=== PATIENT | female | born 1985 | race Asian ===

== ENCOUNTER 2022-11-22 13:59 | Inpatient (IN) | payer OTHER ==
[~2022-11-22] VITALS: Ht 157.5 cm; Wt 55.3 kg
[2022-11-22 16:29] LABS: BASOPHILS % (AUTO) 0.7 % (0.0-2.0); EOSINOPHILS % (AUTO) 5.1 % (1.0-6.0); HEMATOCRIT 32.3 % (36-46); HEMOGLOBIN 10.2 g/dL (12.0-16.0); LYMPHOCYTES # (AUTO) 1.7 K/uL (1.0-4.8); LYMPHOCYTES % (AUTO) 30.9 % (22.0-44.0); MEAN CORPUSCULAR HGB CONC 31.6 G/dL (31.0-37.0); MEAN CORPUSCULAR VOLUME 79 fL (80-100); MONOCYTES # (AUTO) 0.4 K/uL (0.1-1.0); MONOCYTES % (AUTO) 7.1 % (2.0-9.0); NEUTROPHILS # (AUTO) 3.2 K/uL (1.8-7.7); NEUTROPHILS % (AUTO) 56.2 % (40.0-70.0); PLATELET COUNT (AUTO) 436 K/uL (150-450); RED BLOOD CELL COUNT(AUTO) 4.08 MIL/uL (4.00-5.20); RED CELL DISTRIBUTION WIDTH 21.8 % (11.5-14.5)
[2022-11-22 16:46] LABS: ANION GAP 8 mmol/L (8-16); CALCIUM, TOTAL 8.9 mg/dL (8.8-10.5); CARBON DIOXIDE 26 mmol/L (22-29); CHLORIDE 104 mmol/L (98-107); GLOMERULAR FILTR. RATE CALC > 60 mL/min (>60); GLUCOSE,RANDOM 89 mg/dL (70-110); POTASSIUM 3.6 mmol/L (3.5-5.1); SODIUM SERUM 138 mmol/L (136-145); UREA NITROGEN, BLOOD 11 mg/dL (7-18)
[2022-11-22 16:46] LABS: COVID AG,FIA SOURCE NASOPHARYNGEAL
[2022-11-22 16:52] LABS: ACETAMINOPHEN < 2 mcg/mL (10-30); ALANINE AMINOTRANSFERASE 21 U/L (12-78); ALKALINE PHOSPHATASE 56 U/L (46-116); ASPARTATE AMINOTRANSFERASE 22 U/L (15-37); BILIRUBIN,TOTAL 0.5 mg/dL (0.1-1.0); TOTAL PROTEIN, SERUM 8.4 g/dL (6.4-8.2)
[2022-11-22 17:32] LABS: SALICYLATE 0.5 mg/dL (2.8-20.0)
[2022-11-22] MEDS: MELATONIN 5 MG TABLET PO SCH (21:00)
[2022-11-22] MEDS ORDERED: THIAMINE 100 MG TABLET PO SCH (21:00)
[2022-11-22] MEDS ORDERED: GuaiFENesin/D-METHORPHAN [SUGAR-FREE] 200-20MG/10 ML SYRUP UDCUP PO PRN (21:00)
[2022-11-22] MEDS ORDERED: MAGNESIUM HYDROXIDE SUSPENSION 30 ML UDCUP PO PRN (21:00)
[2022-11-22] MEDS ORDERED: LORazepam 2 MG TABLET PO PRN (21:00)
[2022-11-22] MEDS ORDERED: HydrOXYzine PAMOATE 50 MG CAPSULE PO PRN (21:00)
[2022-11-22] MEDS ORDERED: ZOLPIDEM TARTRATE 10 MG TABLET PO PRN (21:00)
[2022-11-22] MEDS ORDERED: TUBERCULIN, PURIFIED PROTEIN DERIVATIVE 5 TU/0.1 ML SYRINGE ID ONE (21:00)
[2022-11-22] MEDS ORDERED: LOPERAMIDE HCL 2 MG CAPSULE PO PRN (21:00)
[2022-11-22] MEDS ORDERED: LURASIDONE HCL 20 MG TABLET PO PRN (21:00)
[2022-11-22] MEDS ORDERED: MAG HYDROX/AL HYDROX/SIMETH ES 30 ML SUSPENSION UDCUP PO PRN (21:00)
[2022-11-22] MEDS ORDERED: PROMETHAZINE HCL 25 MG TABLET PO PRN (21:00)
[2022-11-22] MEDS ORDERED: ACETAMINOPHEN 325 MG TABLET PO PRN (21:00)
[2022-11-22 23:23] LABS: HCG,QUANTITATIVE < 1 mIU/mL (0-6)
[2022-11-23 00:30] VITALS: BP 121/66
[2022-11-23 07:24] LABS: FREE T4 (FREE THYROXINE) 1.26 ng/dL (0.76-1.46); THYROID STIMULATING HORMONE 1.39 uIU/mL (0.36-3.74)
[2022-11-23] MEDS ORDERED: IBUPROFEN 600 MG TABLET PO PRN (08:15)
[2022-11-23 08:37] VITALS: BP 106/63
[2022-11-23] MEDS: MULTIVITAMINS WITH MINERALS, THERAPEUTIC TABLET PO SCH (09:00)
[2022-11-23] MEDS ORDERED: FOLIC ACID 1 MG TABLET PO SCH (09:00)
[2022-11-23] MEDS: THIAMINE 100 MG TABLET PO SCH ×2 (09:00→17:00)
[2022-11-23] MEDS ORDERED: FLUoxetine HCL 20 MG CAPSULE PO SCH (09:00)
[2022-11-23] MEDS: OMEGA-3/DHA/EPA/FISH OIL 1,000 MG CAPSULE PO SCH (09:00)
[2022-11-23 10:59] VITALS: BP 112/70
[2022-11-23] MEDS: ACETAMINOPHEN 325 MG TABLET PO PRN ×2 (11:01→17:20)
[2022-11-23 17:09] VITALS: BP 105/68
[2022-11-23] MEDS ORDERED: LURASIDONE HCL 40 MG TABLET PO SCH (17:30)
[2022-11-23] MEDS: MELATONIN 5 MG TABLET PO SCH (20:44)
[2022-11-23] MEDS ORDERED: LOPERAMIDE HCL 2 MG CAPSULE PO PRN (21:15)
[2022-11-23] MEDS ORDERED: TUBERCULIN, PURIFIED PROTEIN DERIVATIVE 5 TU/0.1 ML SYRINGE ID ONE (21:15)
[2022-11-23] MEDS ORDERED: HydrOXYzine PAMOATE 50 MG CAPSULE PO PRN (21:15)
[2022-11-23] MEDS ORDERED: GuaiFENesin/D-METHORPHAN [SUGAR-FREE] 200-20MG/10 ML SYRUP UDCUP PO PRN (21:15)
[2022-11-23] MEDS ORDERED: MAGNESIUM HYDROXIDE SUSPENSION 30 ML UDCUP PO PRN (21:15)
[2022-11-23] MEDS ORDERED: ACETAMINOPHEN 325 MG TABLET PO PRN (21:15)
[2022-11-23] MEDS ORDERED: MAG HYDROX/AL HYDROX/SIMETH ES 30 ML SUSPENSION UDCUP PO PRN (21:15)
[2022-11-23] MEDS ORDERED: PROMETHAZINE HCL 25 MG TABLET PO PRN (21:15)
[2022-11-24 07:59] LABS: HEMOGLOBIN A1C 4.4 % (3.8-5.6)
[2022-11-24 08:12] LABS: CHOL/HDL RATIO 3.6 (3.9-5.7); FREE T4 (FREE THYROXINE) 1.09 ng/dL (0.76-1.46); THYROID STIMULATING HORMONE 0.41 uIU/mL (0.36-3.74)
[2022-11-24] MEDS ORDERED: MULTIVITAMINS WITH MINERALS, THERAPEUTIC TABLET PO SCH (09:00)
[2022-11-24] MEDS ORDERED: THIAMINE 100 MG TABLET PO SCH (09:00)
[2022-11-24] MEDS: FOLIC ACID 1 MG TABLET PO SCH ×2 (09:00→09:15)
[2022-11-24] MEDS: DULoxetine HCL 30 MG CAPSULE PO SCH ×2 (09:00→09:15)
[2022-11-24] MEDS: MULTIVITAMINS WITH MINERALS, THERAPEUTIC TABLET PO SCH ×2 (09:00→09:15)
[2022-11-24] MEDS: THIAMINE 100 MG TABLET PO SCH ×3 (09:00→17:00)
[2022-11-24] MEDS: PREGABALIN 25 MG CAPSULE PO SCH ×4 (09:00→17:00)
[2022-11-24] MEDS: OMEGA-3/DHA/EPA/FISH OIL 1,000 MG CAPSULE PO SCH ×2 (09:00→09:15)
[2022-11-24] MEDS ORDERED: OMEGA-3/DHA/EPA/FISH OIL 1,000 MG CAPSULE PO SCH (09:00)
[2022-11-24 09:04] VITALS: BP 101/56
[2022-11-24] MEDS ORDERED: PREG25 PO (13:11)
[2022-11-24] MEDS ORDERED: MELA5TAB40 PO (13:11)
[2022-11-24] MEDS ORDERED: DULO-114 PO (13:11)
[2022-11-24] MEDS ORDERED: TRAZ-252 PO (13:11)
[2022-11-24] MEDS ORDERED: OMEG-135 PO (13:11)
[2022-11-24 13:16] VITALS: BP 121/60
[2022-11-24] MEDS ORDERED: TraZODone HCL 50 MG TABLET PO SCH (21:00)
[2022-11-24] MEDS ORDERED: MELATONIN 5 MG TABLET PO SCH (21:00)
== END 2022-11-24 17:15 | disposition home or self-care (01) | DRG 885 ==
LOC: EMS 14:13 → 3EI 23:00
PROVIDERS: ADMIT Psychiatry & Neurology Psychiatry; ATTEND Psychiatry & Neurology Psychiatry
DX: F33.2 Major depressive disorder, recurrent severe without psychotic features (principal); R45.851 Suicidal ideations; Z20.822 Contact with and (suspected) exposure to COVID-19; Z90.710 Acquired absence of both cervix and uterus; Z63.9 Problem related to primary support group, unspecified; D64.9 Anemia, unspecified
CPT/HCPCS: 80053; 80061; 83036; 83735; 84439; 84443; 84702; 85025; 86592; 87081; 93005; 99285; G0480; G0481; Q9967